=== PATIENT | female | born 1990 | race Caucasian/White ===

== ENCOUNTER 2016-06-02 20:07 | Emergency (ER) | payer OTHER ==
[~2016-06-02] VITALS: Ht 165.1 cm; Wt 59.7 kg
[~2016-06-02 20:07] MED LIST: BENT20TA PO; BIRTHCONTROL; PANT20 PO; PERC10TA27 PO; ZOFR4TAB3 SL
[2016-06-02 20:10] VITALS: BP 143/82; PULSE 84; RESP 14; TEMP 98.3; O2SAT 99
[2016-06-02] MEDS ORDERED: EX-L15TA PO (20:37)
[2016-06-02] MEDS ORDERED: ETHI1TAB3 PO (20:37)
[2016-06-02] MEDS ORDERED: BISA10SU24 RECTAL (20:37)
[2016-06-02] MEDS ORDERED: FLEEENE3 RECTAL (20:37)
[2016-06-02 21:35] VITALS: BP 120/78; PULSE 68; RESP 17; O2SAT 98
[2016-06-02 21:46] LABS: BLOOD, URINE NEG (NEG); GLUCOSE,URINE NEG (NEG); KETONE, URINE NEG (NEG); NITRITE,URINE NEG (NEG); PH, URINE 7.5 (5.0-8.5)
[2016-06-02 21:59] LABS: URINE COLOR YELLOW (YELLW/STRAW)
[2016-06-02 22:01] LABS: COMMENT (UR) CULT NOT INDICATED; CULTURE IF INDICATED CULT NOT INDICATED; SQUAMOUS EPITHELIAL CELL URINE 0-5 /hpf (0-5); WBC, URINE 0-2 /hpf (0-5)
--- NOTE | 2016-06-02 22:03 | RADHPO ---
EXAM DATE/TIME: 06/02/2016 21:39 [place] COMPARISON: ABDOMEN FLAT & UPRIGHT, June 30, 2012, 8:50. INDICATIONS : Abdominal discomfort. Constipation. MEDICAL HISTORY : None. SURGICAL HISTORY : Appendectomy. ENCOUNTER: Initial ACUITY: 4 - 6 days PAIN SCORE: 3/10 LOCATION: abdomen. FINDINGS: Supine and upright views of the abdomen were performed. The abdominal bowel gas pattern is normal. No air fluid levels are seen. No abnormal masses, calcifications, or organomegaly is seen. The visu alized lower lungs are clear. No evidence of free intraperitoneal gas. The osseous structures are u nremarkable. CONCLUSION: Unremarkable abdomen. Jose Luis Gill MD on June 02, 2016 at 22:01 Board Certified Radiologist. This report was verified electronically.
--- NOTE | 2016-06-02 22:18 | PD ---
HPI Chief Complaint: GI Complaint Time Seen by Provider: 21:34 Travel History International Travel<30 days: No Contact w/Intl Traveler<30days: No Traveled to known affect area: No History of Present Illness HPI 26-year-old female presents to the emergency department by private transportation the care of her mother for evaluation of constipation for approximately 3 weeks. Patient states symptoms began after taking a new nutritional supplement times one and starting any control pill. Patient' s had mild nausea but denies anorexia vomiting or diarrhea. Patient has had intermittent crampy abdominal pain but also has rectal pain associated with straining to have a bowel movement. Patient reports that she typically has a bowel movement daily. Patient states that she has not had a normal bowel movement for 3 weeks. Patient is use multiple laxatives and stool softeners without success reportedly. No coffee-ground emesis no hematemesis no melena or hematochezia. Patient denies any trauma. Patient is attended stay well- hydrated drinking a bottles of water a day and has remained active with ongoing jogging which she typically does. Patient's had no fever or chills. Patient denies dysuria frequency urgency flank pain or hematuria. Last period was normal and denies . Patient has been seen in the past by butadiene convertor operator for gastritis and peptic ulcer disease. Patient states that was several years ago and has had no GI issues subsequently. Patient states at one point she was identified to have irritable bowel syndrome but states that she does not have crampy abdominal pain with alternating diarrhea or constipation typically. Patient does not report weight loss. Patient is otherwise unable to identify exacerbating or alleviating factors. Patient's eye contact her primary care provider or her gastrologist. Patient has used [id number] milk of magnesia, Dulcolax suppositories, enemas. Patient is also been using MiraLAX. PFSH Past Medical History Narrative Medical Peptic ulcer disease, irritable bowel syndrome GERD appendectomy occasional alcohol use; no cyanosis reviewed Medical History: Denies Significant Hx Cancer: No Cardiovascular Problems: No Diabetes: No Diminished Hearing: No Endocrine: No Gastrointestinal Disorders: Yes (IBS) GERD: Yes Genitourinary: No Immune Disorder: No Musculoskeletal: No Neurologic: No Psychiatric: No Reproductive: No Respiratory: No Thyroid Disease: No Tetanus Vaccination: Unknown Influenza Vaccination: No ?: Not LMP: 05/27/2016 : 0 Past Surgical History Abdominal Surgery: Yes (APPENDIX, 2013) AICD: No Appendectomy: Yes (2014) Joint Replacement: No Pacemaker: No Other Surgery: Yes Social History Alcohol Use: Yes (SPECIAL OCCASIONS) Tobacco Use: No Substance Use: No Allergies-Medications (Allergen,Severity, Reaction): Coded Allergies: No Known Allergies (Verified , 06/02/16) Reported Meds & Prescriptions Reported Meds & Active Scripts Active Reported Ex-Lax (Sennosides) 15 Mg Tab 15 Mg PO HS PRN Fleet Enema Rectal (Sodium Phosphates Rectal) 7-19 Gm/118 Ml Enem 118 Ml RECTAL DAILY PRN Bisacodyl Laxative Supp (Bisacodyl) 10 Mg Supp 10 Mg RECTAL DAILY PRN Crys (Drospirenone-Ethinyl Estradiol) 3-0.02 Mg Tab 1 Tab PO DAILY Review of Systems Except as stated in HPI: all other systems reviewed are Neg Physical Exam Narrative GENERAL: Well-developed well-nourished animated female in no acute distress no respiratory distress. SKIN: Warm and dry. HEAD: Normocephalic. EYES: No scleral icterus. No injection or drainage. NECK: Supple, trachea midline. No JVD or lymphadenopathy. CARDIOVASCULAR: Regular rate and rhythm without murmurs, gallops, or rubs. RESPIRATORY: Breath sounds equal bilaterally. No accessory muscle use. GASTROINTESTINAL: Abdomen soft, non-tender, nondistended. No guarding no rebound. Rectal exam: External exam no prolapsed hemorrhoids no fissure; normal sphincter tone; rectal vault is empty clear mucus on exam glove. MUSCULOSKELETAL: No cyanosis, or edema. BACK: Nontender without obvious deformity. No CVA tenderness. Data Data Last Documented VS Vital Signs Date Time Temp Pulse Resp B/P Pulse Ox O2 Delivery O2 Flow Rate FiO2 06/02/16 21:35 68 17 120/78 98 Room Air 06/02/16 20:10 98.3 Orders Abdomen, Flat & Upright (06/02/16 ) Ed Urine Pregnancytest Poc (06/02/16 21:34) Urinalysis - C+S If Indicated (06/02/16 21:34) Labs Laboratory Tests Test 06/02/16 20:20 Urine Color YELLOW Urine Turbidity CLEAR Urine pH 7.5 Urine Specific [place] 1.010 Urine Protein NEG mg/dL Urine Glucose (UA) NEG mg/dL Urine Ketones NEG mg/dL Urine Occult Blood NEG Urine Nitrite NEG Urine Bilirubin NEG Urine Leukocyte Esterase NEG Urine WBC 0-2 /hpf Urine Squamous Epithelial 0-5 /hpf Cells Microscopic Urinalysis Comment CULT NOT INDICATED MDM Medical Decision Making Medical Screen Exam Complete: Yes Emergency Medical Condition: Yes Medical Record Reviewed: Yes Interpretation(s) poc hcg: negative AXR: FINDINGS: Supine and upright views of the abdomen were performed. The abdominal bowel gas pattern is normal. No air fluid levels are seen. No abnormal masses, calcifications, or organomegaly is seen. The visualized lower lungs are clear. No evidence of free intraperitoneal gas. The osseous structures are unremarkable. CONCLUSION: Unremarkable abdomen. Jose Luis Gill MD on June 02, 2016 at 22:01 Board Certified Radiologist. This report was verified electronically. Vital Signs Date Time Temp Pulse Resp B/P Pulse Ox O2 Delivery O2 Flow Rate FiO2 06/02/16 21:35 68 17 120/78 98 Room Air 06/02/16 20:10 98.3 84 14 143/82 99 UA: wnl Differential Diagnosis Irritable bowel syndrome, constipation, obstipation, bowel obstruction, ileus, UTI, Narrative Course After physical exam patient with soft nontender abdomen and rectal vault is empty without heme positive mucus on exam [id number] hCG negative; specimens sent for urinalysis and flat and upright abdomen ordered Flat and upright x-ray reveals no acute abnormality normal bowel gas pattern no obstruction no subdiaphragmatic free air and no large stool bolus although stool is noted in the right lower quadrant; urinalysis is in normal range Discussed with patient who remains nontender and stable vital signs option for further diagnostics including CAT scan although at this time does not appear to be indicated test and alternative to increase fluid hydration continue with regimen and to add a trial of magnesium citrate and to follow-up with her butadiene convertor operator. Patient like to pursue further outpatient evaluation and agrees that this time she has no pain that her exam is nontender and that she will defer any further diagnostics to the emergency department. Patient is stable for outpatient management. Diagnosis Primary Impression: Constipation, unspecified Referrals: [facility] 1 day call office in the am to arrange appointment with your GI doctor Dr Dumont Patient Instructions: General Instructions Additional Instructions: Continue with increase fluid hydration May use magnesium citrate per package directions Follow-up with your butadiene convertor operator call office in a.m. to schedule follow- up with your GI doctor Dr. Dumont Return to the emergency department for any concerns or change in condition May take as tolerated acetaminophen/Tylenol every 4 hours for fever 100.4F or greater or for minor pain; or a take ibuprofen/Advil/Motrin every 6-8 hours as needed for fever 100.4F or greater or for pain associated with inflammation Continue with remaining physically active Add dietary fiber Med/Other Pt SpecificInfo: No Change to Meds Disposition: 01 DISCHARGE HOME Condition: Ankita Jackson MD Jun 02, 2016 22:18
== END 2016-06-02 22:38 | disposition home or self-care (01) ==
LOC: PHED 20:07
DX: K59.00 Constipation, unspecified (principal); K58.9 Irritable bowel syndrome, unspecified; K21.9 Gastro-esophageal reflux disease without esophagitis
CPT/HCPCS: 74020; 81001; 84703; 99283

== ENCOUNTER 2016-10-11 16:44 | Emergency (ER) | payer OTHER ==
[~2016-10-11] VITALS: Ht 165.1 cm; Wt 63.8 kg
[~2016-10-11 16:44] MED LIST changes: -BENT20TA PO; -BIRTHCONTROL; +BISA10SU24 RECTAL; +ETHI1TAB3 PO; +EX-L15TA PO; +FLEEENE3 RECTAL; -PANT20 PO; -PERC10TA27 PO; -ZOFR4TAB3 SL
[2016-10-11 16:52] VITALS: BP 152/91; PULSE 68; RESP 16; TEMP 97.8; O2SAT 100
[2016-10-11] MEDS ORDERED: LISD20CA PO (17:07)
--- NOTE | 2016-10-11 17:33 | PD ---
HPI Chief Complaint: OD/ Ingestion Time Seen by Provider: 17:06 Travel History International Travel<30 days: No Contact w/Intl Traveler<30days: No Traveled to known affect area: No History of Present Illness HPI The patient was seen and examined in the presence of the nurse. This patient was complaining of feeling lightheaded. He was worried that she accidentally overdosed on Midol. She was having some menstrual cramps so she took 2 this morning at 8. She took an additional 2 tablets that 9:30. And she took 2 more tablets at noon. She took a total of 6 which is the recommended maximum dose and 24 hour period. That contains 3 g of Tylenol along with some caffeine an antihistamine and low-dose. Denies drug use or intentional harm. Severity at this time is mild. No syncope or headache or chest pain. She is without medical history PFSH Past Medical History ADHD: Yes Cancer: No Cardiovascular Problems: No Diabetes: No Diminished Hearing: No Endocrine: No Gastrointestinal Disorders: Yes (IBS) GERD: Yes Genitourinary: No Immune Disorder: No Musculoskeletal: No Neurologic: No Psychiatric: No Reproductive: No Respiratory: No Thyroid Disease: No Tetanus Vaccination: Unknown Influenza Vaccination: No ?: Not LMP: 10/11/16 : 0 Past Surgical History Abdominal Surgery: Yes (APPENDIX, 2012) AICD: No Appendectomy: Yes (2014) Joint Replacement: No Pacemaker: No Other Surgery: Yes Social History Alcohol Use: Yes (weekends) Tobacco Use: No Substance Use: No Allergies-Medications (Allergen,Severity, Reaction): Coded Allergies: No Known Allergies (Verified , 10/11/16) Reported Meds & Prescriptions Reported Meds & Active Scripts Active Reported Vyvanse (Lisdexamfetamine Dimesylate) 20 Mg Cap 20 Mg PO DAILY Crys (Drospirenone-Ethinyl Estradiol) 3-0.02 Mg Tab 1 Tab PO DAILY Review of Systems General / Constitutional: No: Fever Eyes: No: Visual changes HENT: Positive: Lightheadedness, No: Headaches Cardiovascular: No: Chest Pain or Discomfort Respiratory: No: Shortness of Breath Gastrointestinal: No: Abdominal Pain Genitourinary: No: Dysuria Musculoskeletal: No: Pain Skin: No Rash Neurologic: Positive: Dizziness, No: Weakness Psychiatric: No: Depression Endocrine: No: Polydipsia Hematologic/Lymphatic: No: Easy Bruising Physical Exam Narrative GENERAL: Well-nourished, well-developed patient in no apparent distress. SKIN: Focused skin assessment reveals no rash and nodules. Skin is Warm and dry. HEAD: Atraumatic. Normocephalic. EYES: Pupils equal and round. No scleral icterus. No injection or drainage. ENT: No nasal bleeding or discharge. Mucous membranes pink and moist. NECK: Trachea midline. No JVD. CARDIOVASCULAR: Regular rate and rhythm. No murmur appreciated. RESPIRATORY: No accessory muscle use. Clear to auscultation. Breath sounds equal bilaterally. GASTROINTESTINAL: Abdomen soft, non-tender, nondistended. Hepatic and splenic margins not palpable. MUSCULOSKELETAL: No obvious deformities. No clubbing. No cyanosis. No edema. NEUROLOGICAL: Awake and alert. No obvious cranial nerve deficits. Motor grossly within normal limits. Normal speech. PSYCHIATRIC: Appropriate mood and affect; insight and judgment normal. Data Data Last Documented VS Vital Signs Date Time Temp Pulse Resp B/P (MAP) Pulse Ox O2 Delivery O2 Flow Rate FiO2 10/11/16 16:52 97.8 68 16 152/91 (111) 100 MDM Medical Decision Making Medical Screen Exam Complete: Yes Emergency Medical Condition: Yes Medical Record Reviewed: Yes Differential Diagnosis Overmedication, overdose, alcohol intoxication Narrative Course I have reviewed the patient's electronic medical record. This patient looks clinically well. Symptoms are mild and she has normal vital signs and normal exam I offered some testing but I doubt that he would yield much results of clinical value. She agrees and would like to go home. At that she will metabolize these substances and feel fine tomorrow. Likely the caffeine and alcohol combination is what did this. She had 3 g of Tylenol total which is not worrisome. Likewise antihistamine amount was small Stable for outpatient follow-up There is no psychiatric component at play here Diagnosis Primary Impression: Dizziness Additional Impression: Medication side effect Qualified Codes: T88.7XXA - Unspecified adverse effect of drug or medicament, initial encounter Departure Forms: Tests/Procedures Additional Instructions: The patient was advised to follow up with their physician and return if they worsen. Med/Other Pt SpecificInfo: Other Disposition: 01 DISCHARGE HOME Condition: Stable Dennis Pearce MD Oct 11, 2016 17:33
== END 2016-10-11 17:50 | disposition home or self-care (01) ==
LOC: PHED 16:44
DX: R42 Dizziness and giddiness (principal); T50.995A Adverse effect of other drugs, medicaments and biological substances, initial encounter; K58.9 Irritable bowel syndrome, unspecified; K21.9 Gastro-esophageal reflux disease without esophagitis
CPT/HCPCS: 99281